=== PATIENT | female | born 1935 | race Caucasian/White ===

== ENCOUNTER 2017-11-16 19:49 | Emergency (ER) | payer BC ==
[~2017-11-16] VITALS: Ht 162.6 cm; Wt 47.6 kg
[2017-11-16 20:38] VITALS: BP 158/66
[2017-11-16] MEDS ORDERED: FLUORESCEIN SOD 1 MG TEST STRIP EACHEYE ONE (23:00)
[2017-11-16] MEDS ORDERED: TETRACAINE HCL 0.5% OPTH(EYE) SOLN 4ML EACHEYE ONE (23:00)
[2017-11-17] MEDS ORDERED: GENTAMICIN SULF 0.3% OPTH(EYE) OINT 3.5GM EACHEYE ONE (00:15)
[2017-11-17] MEDS ORDERED: GENTAMICIN OPTH sol 0.3% 5ml ONE (00:19)
== END 2017-11-17 00:40 | disposition home or self-care (01) ==
LOC: ER 19:49
DX: H16.001 Unspecified corneal ulcer, right eye (principal)